=== PATIENT | female | born 1955 | race Caucasian/White ===

== ENCOUNTER 2023-09-11 09:43 | Emergency (ER) | payer MEDICARE ==
[2023-09-11] MEDS: Ketorolac 30 MG/ML SDV IM ONE (10:25)
[2023-09-11] MEDS: Acetaminophen 500 MG Tab PO ONE (10:26)
== END 2023-09-11 11:20 | disposition home or self-care (01) ==
LOC: LB.ED 09:43
DX: M54.32 Sciatica, left side (principal); I10 Essential (primary) hypertension; E78.00 Pure hypercholesterolemia, unspecified; Z90.710 Acquired absence of both cervix and uterus; Z79.899 Other long term (current) drug therapy
CPT/HCPCS: 96372; 99283; A9270-GY; J1885